=== PATIENT | male | born 1965 | race Caucasian/White ===

== ENCOUNTER → 2017-08-27 | Outpatient (CLI) | payer OTHER ==
[~2017-08-27] MED LIST: GADOBUTROL 10 ML VIAL IVP ONE
== END ==
LOC: FIMAGING 19:55
PROVIDERS: ATTEND Internal Medicine Hematology & Oncology
DX: C43.9 Malignant melanoma of skin, unspecified (principal)
CPT/HCPCS: A9585

== ENCOUNTER → 2018-09-25 | Outpatient (CLI) | payer OTHER | LOC: FIMAGING 10:14 | PROVIDERS: ATTEND Internal Medicine Hematology & Oncology | DX: C43.59 Malignant melanoma of other part of trunk (principal) | CPT/HCPCS: A9585 ==